=== PATIENT | female | born 1960 | race Caucasian/White ===

== ENCOUNTER 2022-10-22 13:07 | Outpatient (CLI) | payer OTHER, SELFPAY ==
--- NOTE | 2022-10-22 13:15 | CRLHL7_ITS ---
For Patients: As a result of the Century Cures Act, medical imaging exams and procedure reports are released immediately into your electronic medical record. You may view this report before your referring provider. If you have questions, please contact your health care provider. INDICATION: Malignant neoplasm of the anal canal TECHNIQUE: Following IV injection of FDG with uptake of 54 minutes, noncontrast CT scan followed by a PET scan were acquired along the length of body from the head to the upper thighs. Noncontrast CT was used for anatomic localization and photon attenuation correction of the PET-CT scan. - Blood glucose level: 133. - FDG dose (mCi): 12.23. COMPARISON: 07/18/2021 and 03/12/2022. FINDINGS: Head/Neck: No abnormal radiotracer activity. - Chest: No abnormal radiotracer activity. - Background liver parenchyma with SUV mean of 2.6. Redemonstrated small right-sided focus of radiotracer activity at the anal canal (image 233) with SUV max of 3.7, previously 5.2. - Musculoskeletal: No abnormal radiotracer uptake. - CT findings: New versus increased size of a right sided pleural based pulmonary nodule (image 105) measuring approximately 8 millimeters. No definite metabolic activity associated with this nodule. This may have been present on prior hollow obscured by motion and likely smaller. Left adrenal gland thickening. IMPRESSION : 1. Similar size and appearance of an 8 mm right pleural-based pulmonary nodule which was seen on prior abdomen pelvis CT but not definitively seen on prior PET CT, possibly due to motion. No associated metabolic activity. Recommend follow up chest CT in 6 months. 2. Similar activity along the right anal canal, possibly post-treatment in etiology. 3. No definite evidence of metastatic disease. Dictated by Jiagr Goodwin MD @ 10/28/2022 11:49:41 AM (Electronically Signed)
== END 2022-10-22 13:08 | disposition home or self-care (01) ==
LOC: RAD 13:08
PROVIDERS: PCP Family Medicine; Visit Provider Nurse Practitioner
DX: C21.1 Malignant neoplasm of anal canal (principal)
CPT/HCPCS: 78815; A9552